=== PATIENT | female | born 1955 | race Native Hawaiian/Other Pacific Islander ===

== ENCOUNTER 2022-10-11 07:22 | Emergency (ER) | payer MEDICARE ==
[2022-10-11] MEDS ORDERED: SODIUM CHLORIDE 0.9% 1,000 ML IV STA ×2 (07:55→18:03)
[2022-10-11] MEDS ORDERED: ONDANSETRON 4 MG/2 ML VIAL IVP STA ×2 (07:55→14:02)
--- NOTE | 2022-10-11 08:03 | ED Physician Documentation ---
PD HPI ABD PAIN - Stated complaint Stated Complaint: N/V AB PX - Chief complaint Chief Complaint: Abd Pain - History obtained from History obtained from: Patient - Additional information Additional information: Patient is a 67-year-old female presenting for evaluation of left lower quadrant abdominal pain with nausea and vomiting since yesterday afternoon. Patient reports that initially her emesis consisted of food and then has been liquids. Denies blood in emesis or stools. No fever, chest pain or shortness of air. Has had a prior appendectomy. Denies dysuria. Nothing makes her symptoms be tter or worse. Denies any recent sick contacts or antibiotic use.Patient does take medications for diabetes and high blood pressure and has not been able to tolerate her p.o. meds. Review of Systems Constitutional: denies: Fever Cardiac: denies: Chest pain / pressure Respiratory: denies: Dyspnea GI: reports: Abdominal Pain, Nausea, Vomiting. denies: Bloody / black stool : denies: Dysuria Neurologic: denies: Headache PD PAST MEDICAL HISTORY - Allergies Allergies/Adverse Reactions: Allergies Allergy/AdvReac Type Severity Reaction Status Date / Time ampicillin Allergy Unknown Verified 10/11/22 07:33 PD ED PE NORMAL - General General: Alert and oriented X 3, No acute distress, Well developed/nourished - HEENT HEENT: Atraumatic - Neck Neck: Supple, no meningeal sign - Cardiac Cardiac: RRR, No murmur - Respiratory Respiratory: No respiratory distress, Clear bilaterally - Abdomen Abdomen: Normal bowel sounds, Non distended, Other (Left lower quadrant abdominal tenderness to palpation, no rebound, no guarding, no palpable mass) - Derm Derm: Warm and dry - Neuro Neuro: Normal speech Results - Vitals Vitals: Vital Signs - 24 hr 10/11/22 10/11/22 10/11/22 07:30 08:11 10:00 Temperature 35.9 C L Heart Rate 53 L 58 L 61 Respiratory 18 20 16 Rate Blood Pressure 193/56 H 169/73 H 173/114 H O2 Saturation 98 98 98 10/11/22 10/11/22 12:00 16:00 Temperature Heart Rate 65 85 Respiratory 20 18 Rate Blood Pressure 145/59 H 120/61 O2 Saturation 95 94 Oxygen O2 Source Room air - Labs Labs: Laboratory Tests 09/02/23 09/02/23 09/02/23 08:02 08:04 08:04 WBC 18.7 H RBC 4.68 Hgb 14.0 Hct 42.7 MCV 91.2 MCH 29.9 MCHC 32.8 RDW 11.7 L Plt Count 194 MPV 10.5 Neut # (Auto) 17.0 H Lymph # (Auto) 0.9 L B[place] # (Auto) 0.6 Eos # (Auto) 0.0 Baso # (Auto) 0.0 Absolute Nucleated RBC 0.00 Nucleated RBC % 0.0 VBG pH VBG pCO2 VBG pO2 VBG HCO3 VBG Total CO2 VBG O2 Saturation VBG Base Excess Sodium 132 L Potassium 4.8 H Chloride 98 L Carbon Dioxide 26 Anion Gap 8.0 BUN 34 H Creatinine 2.0 H Estimated GFR (MDRD) 25 L Glucose 368 H POC Whole Bld Glucose 346 H Calcium 9.9 Total Bilirubin 0.8 AST 22 ALT 18 Alkaline Phosphatase 64 Total Protein 8.2 Albumin 4.5 Globulin 3.7 Albumin/Globulin Ratio 1.2 Lipase 50 Urine Color Urine Clarity Urine pH Ur Specific Monroe Urine Protein Urine Glucose (UA) Urine Ketones Urine Occult Blood Urine Nitrite Urine Bilirubin Urine Urobilinogen Ur Leukocyte Esterase Urine RBC Urine WBC Ur Squamous Epith Cells Amorphous Sediment Urine Bacteria Urine Mucus Ur Microscopic Review Urine Culture Comments Serum Ketones NEGATIVE 10/11/22 10/11/22 08:04 10:31 WBC RBC Hgb Hct MCV MCH MCHC RDW Plt Count MPV Neut # (Auto) Lymph # (Auto) Baca # (Auto) Eos # (Auto) Baso # (Auto) Absolute Nucleated RBC Nucleated RBC % VBG pH 7.351 VBG pCO2 45.1 VBG pO2 24.1 L VBG HCO3 24.4 VBG Total CO2 25.8 VBG O2 Saturation 42.6 L VBG Base Excess -1.4 Sodium Potassium Chloride Carbon Dioxide Anion Gap BUN Creatinine Estimated GFR (MDRD) Glucose POC Whole Bld Glucose Calcium Total Bilirubin AST ALT Alkaline Phosphatase Total Protein Albumin Globulin Albumin/Globulin Ratio Lipase Urine Color YELLOW Urine Clarity CLEAR Urine pH 5.5 Ur Specific [place] 1.020 Urine Protein 30 H Urine Glucose (UA) >=1000 H Urine Ketones TRACE Urine Occult Blood NEGATIVE Urine Nitrite NEGATIVE Urine Bilirubin NEGATIVE Urine Urobilinogen 0.2 (NORMAL) Ur Leukocyte Esterase TRACE H Urine RBC 0-5 Urine WBC 4-5 Ur Squamous Epith Cells MOD Squamous H Amorphous Sediment Few Urine Bacteria Moderate H Urine Mucus Few Strands Ur Microscopic Review INDICATED Urine Culture Comments NOT INDICATED Serum Ketones PD Medical Decision Making - ED course Complexity details: reviewed results, re-evaluated patient, d/w patient ED course: Patient is a 67-year-old female with left-sided abdominal pain with nausea and vomiting. Labs significant for leukocytosis of 18,000. Creatinine is 2.0 which appears to be acute for the patient. Mild hyponatremia. CT abdomen pelvis noncontrast was obtained which revealed a left ureter stone. Urine analysis is concerning for infection. Given presence of stone with infection and STACEY patient requires admission. Unfortunately there is no urology coverage this weekend. I was able to speak with the urologist in the [place] area where radha ent is from. Accepted to [facility] in [place]. Patient did have adequate pain control with IV morphine, IV Toradol, Zofran, IV fluids. 1313 - D/W Dr. Rodriguez (Urology, [place]) - He would be willing to consult on the patient if transfer center can ensure that if ureter stent is not able to be performed that IR would be able to place a nephrostomy. There is no IR at [facility] but there is at [facility]. Transfer center is going to check with the interventional radiologist to see if they will be able to come over to [facility] to place a nephrostomy on the weekend or if they would be able to do one if they were able to arrange a roundtrip transfer should patient require 1 over the weekend. 1313 - D/W Dr. Corley (Hospitalist, [place]) - Accept the patient for further management. Labs from [facility] - 08/01/21: Sodium 135, potassium 3.6, BUN 9, creatinine 1.0 Departure - Departure Disposition: 02 Transfer Acute Care Hosp Clinical Impression: Left ureteral stone, STACEY (acute kidney injury), UTI (urinary tract infection), Leukocytosis Condition: Good Forms: PCP List
[2022-10-11 08:10] LABS: BASOPHILS % (AUTO) 0.2 %; EOSINOPHILS % (AUTO) 0.1 %; HCT - HEMATOCRIT 42.7 % (37.0-47.0); LYMPHOCYTES # (AUTO) 0.9 10^3/uL (1.5-3.5); LYMPHOCYTES % (AUTO) 4.6 %; MEAN CORPUSCULAR HEMOGLOBIN 29.9 pg (27.0-31.0); MEAN CORPUSCULAR HGB CONC 32.8 g/dL (32.0-36.0); MEAN CORPUSCULAR VOLUME 91.2 fL (81.0-99.0); MEAN PLATELET VOLUME 10.5 fL (7.9-10.8); MONOCYTES # (AUTO) 0.6 10^3/uL (0.0-1.0); MONOCYTES % (AUTO) 3.2 %; NEUTROPHILS % (AUTO) 91.4 %; PLT - PLATELET COUNT 194 10^3/uL (130-450); RED BLOOD COUNT 4.68 10^6/uL (4.20-5.40); RED CELL DISTRIBUTION WIDTH 11.7 % (12.0-15.0); WHITE BLOOD COUNT 18.7 x10^3/uL (4.8-10.8)
[2022-10-11 08:16] LABS: VBG BASE EXCESS -1.4 mmol/L (-2 - +2); VBG HCO3 24.4 mmol/L (23-28); VBG PCO2 45.1 mmHg (41-51); VBG PH 7.351 (7.31-7.41); VBG PO2 24.1 mmHg (25-47); VBG TOTAL CO2 25.8 mmol/L (24-29)
[2022-10-11 08:17] LABS: VBG OXYGEN SATURATION 42.6 % (60-80)
[2022-10-11 08:30] LABS: ALBUMIN 4.5 g/dL (3.2-5.5); ALBUMIN/GLOBULIN RATIO 1.2 (1.0-2.2); ALKALINE PHOSPHATASE 64 IU/L (42-121); ALT ALANINE AMINOTRANSFERASE 18 IU/L (10-60); AST ASPARTATE AMINOTRANSFERASE 22 IU/L (10-42); BILIRUBIN,TOTAL 0.8 mg/dL (0.2-1.0); BUN - BLOOD UREA NITROGEN 34 mg/dL (6-20); CALCIUM 9.9 mg/dL (8.5-10.3); CARBON DIOXIDE - CO2 26 mmol/L (21-32); CHLORIDE 98 mmol/L (101-111); GFR - MDRD 25 (>89); GLUCOSE 368 mg/dL (74-104); LIPASE 50 U/L (11-82); POTASSIUM 4.8 mmol/L (3.5-4.5); SODIUM 132 mmol/L (135-145); TOTAL PROTEIN 8.2 g/dL (6.4-8.9)
[2022-10-11 08:45] LABS: KETONES, SERUM (ACETEST) NEGATIVE (NEGATIVE)
[2022-10-11] MEDS ORDERED: MORPHINE 2 MG/ML CARPUJECT IVP STA ×2 (09:18→14:02)
--- NOTE | 2022-10-11 10:05 | CT Report ---
PROCEDURE: ABDOMEN/PELVIS WO INDICATIONS: LLQ pain/vomiting TECHNIQUE: A CT scan of the abdomen and pelvis was performed without the use of intravenous contrast. Images we re recorded and evaluated at appropriate window settings. Reformats: coronal and sagittal. For radiat ion dose reduction, the following was used: automated exposure control, adjustment of mA and/or kV ac cording to patient size. COMPARISON: None. FINDINGS: Image quality: Excellent. Lung bases and heart: Unremarkable. Liver: No solid mass. Gallbladder and biliary tree: Within normal limits. Spleen: No splenomegaly. Pancreas: No pancreatic ductal dilation. Adrenals: No adrenal nodule. Kidneys and ureters: There is a 9 mm obstructing stone seen within the left proximal ureter, as on se matthew 5 image 30 and on series 2 image 38 measuring 500 Hounsfield units. There is associated moderate left-sided hydronephrosis and proximal left-sided hydroureter. Left-side d perinephric fat stranding can be seen. No obstructing left-sided kidney stones are seen, measuring up to 4 mm. A 2 mm nonobstructing right-sided kidney stone is seen. No right-sided hydronephrosis is seen. Bowel and peritoneum: Moderate wall thickening can be seen involving the distal colon, beginning at t he level of the proximal transverse colon and continuing through the mid sigmoid colon. Distal coloni c diverticulosis is seen. No dilated loops of small bowel are seen. The stomach is relatively decompressed at the time of this study, limiting its evaluation. Lymph nod es: No central or retroperitoneal adenopathy. Vessels: No infrarenal aortic aneurysm. PELVIS Reproductive organs: This patient is status post hysterectomy. No adnexal masses can be seen. Bladder: No wall thickness, accounting for underdistention. Pelvic lymph nodes: No pelvic adenopathy by size criteria. Bones: No aggressive osseous abnormality. Other: No significant ventral or inguinal hernia. IMPRESSION: 9 mm obstructing stone within the left proximal ureter with associated left-sided obstructive finding s. Nonobstructive bilateral renal stones are seen, left larger than right. Distal colonic wall thickening can be seen. Please correlate with potential infectious and inflammato ry causes of colitis. No findings of perforation or abscess can be seen. Additional findings: Hysterectomy Reviewed by: Ochoa Bower MD on 10/11/2022 9:04 AM AKDT Approved by: Ochoa Bower MD on 10/11/2022 9:04 AM DEX Station ID: [id number]
[2022-10-11] MEDS ORDERED: KETOROLAC 15 MG/ML VIAL IVP STA (10:11)
[2022-10-11 10:45] LABS: BILIRUBIN,URINE NEGATIVE (NEGATIVE); CLARITY,URINE CLEAR (CLEAR); GLUCOSE, URINE (UA) >=1000 mg/dL (NEGATIVE); KETONES,URINE (UA) TRACE mg/dL (NEGATIVE); LEUKOCYTE ESTERASE, URINE TRACE (NEGATIVE); NITRITE,URINE NEGATIVE (NEGATIVE); OCCULT BLOOD,URINE NEGATIVE (NEGATIVE); PH,URINE 5.5 PH (5.0-7.5); PROTEIN,URINE 30 mg/dL (NEGATIVE); UROBILINOGEN,URINE 0.2 (NORMAL) E.U./dL (NORMAL)
[2022-10-11 10:52] LABS: BACTERIA,URINE Moderate /HPF (None Seen); RBC,URINE 0-5 /HPF (0-5); SQUAMOUS EPITHELIAL CELL,UR MOD Squamous (<= Few)
[2022-10-11 10:53] LABS: AMORPHOUS SEDIMENT,UR Few /LPF; MUCUS,URINE Few Strands
[2022-10-11] MEDS ORDERED: cefTRIAXone 1 GM in SODIUM CHLORIDE 0.9% MINIBAG 100 ML IV STA (11:17)
[2022-10-11] MEDS ORDERED: MORPHINE 2 MG/ML CARPUJECT IVP PRN (18:03)
[2022-10-11] MEDS ORDERED: ONDANSETRON 4 MG/2 ML VIAL IVP PRN (18:03)
[2022-10-11] MEDS ORDERED: cefTRIAXone 1 GM VIAL ONE (19:05)
[2022-10-11 19:15] VITALS: BP 104/58; O2SAT 96
== END 2022-10-11 20:01 | disposition short-term general hospital (02) ==
LOC: ED 07:22
DX: N20.1 Calculus of ureter (principal); N17.9 Acute kidney failure, unspecified; N39.0 Urinary tract infection, site not specified; D72.829 Elevated white blood cell count, unspecified
CPT/HCPCS: 36415; 80053; 81001; 81003; 82009; 82803; 83690; 85025; 87086; 96365; 96375; 96376; 99284